=== PATIENT | female | born 1990 | race Hispanic/Latino ===

== ENCOUNTER 2016-11-11 08:00 | Inpatient (IN) | payer OTHER ==
[2016-11-11 09:25] VITALS: BMI 23.8
[2016-11-11] MEDS ORDERED: Oxytocin 30 units/LR 500ML 30 UNITS/500 ML BAG IV SCH (10:15)
--- NOTE | 2016-11-11 10:24 | OBADHP ---
Datetime: 11/11/2016 10:19 Pelvic Type - PN: Adequate Extremities - PN: Normal Abdomen - PN: Normal Back - PN: Normal Breast - PN: Normal Lungs - PN: Normal Heart - PN: Normal Thyroid - PN: Normal Neurologic - PN: Normal HEENT - PN: Normal General - PN: Normal Weight - Estimated: 3700 Presentation-Admit: Vertex FHR - Baseline A Provider: 125 Membranes, Provider: Intact Contraction Comments Provider: irregular Vital Signs Provider: Reviewed; Within Normal Limits IP Chief Complaint: Uterine contractions NICHD Variability Prov Fetus A: Moderate 6-25bpm NICHD Accel Fetus A IP Provider: 10X10 NICHD Decel Fetus A IP Provider: None Dilatation, Provider: 2 Effacement, Provider: 70 Station, Provider: -2 Genitourinary Exam: Normal DTRs - PN: Normal IP Adm Impression: Term, intrauterine IP Admit Plan: Admit to unit; Initiate labor protocol; Initiate labor augmentation protocol
[2016-11-11 11:04] LABS: BASO # 0.1 K/uL (0.0-0.2); BASO % 0.9 % (0.0-2.0); EOS # 0.2 K/uL (0.0-0.7); EOS % 1.5 % (0.0-4.0); HEMATOCRIT 40.7 % (34.0-47.0); LYMPH # 1.6 K/uL (1.0-4.3); LYMPH % 12.5 % (20.0-40.0); MEAN CELL VOLUME 92.1 fl (81.0-99.0); MEAN CORPUSCULAR HEMOGLOBIN 31.3 pg (27.0-31.0); MEAN CORPUSCULAR HGB CONC 34.1 g/dL (33.0-37.0); MEAN PLATELET VOLUME 9.1 fl (7.2-11.7); MONO # 0.9 K/uL (0.0-0.8); NEUT # 10.2 K/uL (1.8-7.0); NEUT % 78.1 % (50.0-75.0); RED CELL DISTRIBUTION WIDTH 14.2 % (11.5-14.5); WHITE BLOOD COUNT 13.1 K/uL (4.8-10.8)
[2016-11-11 11:15] LABS: ALB/GLOB RATIO 1.6 (1.0-2.1); ALKALINE PHOSPHATASE 184 U/L (38-126); ALT/SGPT 39 U/L (9-52); AST/SGOT 42 U/L (14-36); BILIRUBIN,TOTAL 0.4 mg/dl (0.2-1.3); BLOOD UREA NITROGEN 8 mg/dl (7-17); CALCIUM 9.7 mg/dL (8.4-10.2); CARBON DIOXIDE 22 mmol/L (22-30); CHLORIDE 107 mmol/L (98-107); GFR AFRICAN-AMERICAN > 60; GLUCOSE,RANDOM 75 mg/dL (65-105); SODIUM 139 mmol/l (132-148); TOTAL PROTEIN 6.4 G/DL (6.3-8.2)
[2016-11-11 11:45] VITALS: BP 122/82; PULSE 106; RESP 18; TEMP 99; O2SAT 100
--- NOTE | 2016-11-11 12:06 | OBPN ---
Datetime: 11/11/2016 10:30 IP Progress Impression: Rupture of membranes IP Procedures: Artificial ROM IP Progress Plan: Continue present management Vital Signs Provider: Reviewed Dilatation, Provider: 2 Effacement, Provider: 80 Datetime: 11/11/2016 10:19 IP Informed Consent Obtain: Vaginal Delivery; Section Delivery; Induction of Labor; Risks, Benefits and Alternatives Discussed Membranes, Provider: Intact Contraction Comments Provider: irregular FHR - Baseline A Provider: 125 Weight - Estimated: 3700 Presentation-Admit: Vertex NICHD Accel Fetus A IP Provider: 10X10 NICHD Variability Prov Fetus A: Moderate 6-25bpm Station, Provider: -2 NICHD Decel Fetus A IP Provider: None
--- NOTE | 2016-11-11 18:26 | OBPN ---
Datetime: 11/11/2016 18:24 IP Progress Impression: Normal progression of labor IP Procedures: Artificial ROM IP Progress Plan: Continue present management FHR Category Provider Fetus A: Category I NICHD Decel Fetus A IP Provider: None Datetime: 11/11/2016 10:30 Membranes, Provider: Ruptured Amniotic Fluid Color, Provider: Clear Contraction Comments Provider: irregular Station, Provider: -2
[2016-11-11] MEDS ORDERED: Lidocaine 1% Inj (20ml) ONE (19:38)
[2016-11-11] MEDS ORDERED: Benzocaine/Menthol SPRAY TOP PRN (20:53)
--- NOTE | 2016-11-11 21:34 | OBDS ---
[employer] PERSONNEL Nurse Avionics Technician Certified: Seema Price CNM Delivery Doctor: Seema Price CNM Lamp Shade Assembler: Portia RN , Donny RN MATERNAL INFORMATION Delivery Anesthesia: Local Medications in Delivery: N/A Estimated Blood Loss (ml): 300 Placenta Cultured: No Maternal Complications: None Provider Comments: Patient was examined and found to be 10cm/+2 with the urge to push. FHR Cateogry 1. Pt pushed effectively for a of a live viable infant born from the direct OA position. Should er were easy and the baby was placed on the maternal abdomen and a spontaneous cry was produced. The cord clamping was then delayed until the placenta showed signes of seperating (5 min after ) and the placenta was spontaneous and intact. The fluid was clear. The baby produced yellow urine while o n the mother's abdomen. LABOR SUMMARY No. Babies in Womb: 1 Attempted: No Labor Anesthesia: None LABOR INFORMATION Reason for Induction: Postterm Other Ripening Agents: N/A Oxytocin: N/A Group B Beta Strep: Negative (Annotations: 10/11/16) Antibiotics # of Doses: N/A Steroids Given: None Reason Steroids Not Administered: Not Applicable MEMBRANES Membranes Rupture Method: Artificial Rupture of Membranes: 11/11/2016 10:45 Length of Rupture (hrs): 8.70 Amniotic Fluid Color: Clear Amniotic Fluid Amount: Moderate Amniotic Fluid Odor: Normal STAGES OF LABOR Stage 3 hrs: 0 Stage 3 min: 8 VAGINAL DELIVERY Episiotomy: None Laceration Extension: Second Degree Laceration Type: Perineal Laceration Repair: Yes Laceration Repair Note: Perineal insepction revealed a very mild 2nd degree laceration which was rep aired with a 2.0 vicryl suture. good hemostasis. no utertonics given. fundus firm Initial Vag Sponge Count: 15 Final Vag Sponge Count: 15 Initial Vag Sharps Count: 1 Final Vag Sharps Count: 1 Sponge Count Correct: Yes Sharps Count Correct: Yes Count Comment: Laps 5 Xray detectable sponge 10 sharps 1 instruments 15 BABY A INFORMATION Delivery Date/Time: 11/11/2016 19:27 Method of Delivery: Vaginal Born in Route : No : N/A Forceps: N/A Vacuum Extraction: N/A Shoulder Dystocia : No SHOULDER DYSTOCIA BABY A Infant Delivery Date/Time: 11/11/2016 19:27 PRESENTATION/POSITION BABY A Presentation: Cephalic Cephalic Presentation: Vertex Vertex Position: N/A PLACENTA INFORMATION BABY A Placenta Delivery Time : 11/11/2016 19:35 SCORES BABY A Heart Rate 1 min: >100 bpm Resp Effort 1 min: Good Cry Reflex Irritability 1 min: Cough or Sneeze or Pulls Away Muscle Tone 1 min: Active Motion Color 1 min: Body [place], Extremities Blue Resuscitation Effort 1 min: Tactile Stimulation SCORE 1 MIN: 9 Heart Rate 5 min: >100 bpm Resp Effort 5 min: Good Cry Reflex Irritability 5 min: Cough or Sneeze or Pulls Away Muscle Tone 5 min: Active Motion Color 5 min: Body [place], Extremities Blue Resuscitation Effort 5 min: N/A SCORE 5 MIN: 9 INFORMATION BABY A Infant Outcome : Liveborn Infant Condition : Stable Sex: Male CORD INFORMATION BABY A No. Cord Vessels: 3 Nuchal Cord : N/A Nuchal Cord Other: N/A True Knot: N/A Infant Cord pH Baby Arterial: N/A Infant Cord pH Baby Venous: N/A Cord Blood Taken: Yes Banking/Donate Info: N/A Suction: None ASSESSMENT BABY A Complications: None Physical Findings at Delivery: Within Normal Limits Respirations: Appears Normal Director Drug Safety/ALS Called : No Infant Care By: Portia MORALEZ Transferred To: Remains with Mother
[2016-11-12 06:21] LABS: BASO % 0.2 % (0.0-2.0); EOS # 0.2 K/uL (0.0-0.7); EOS % 0.8 % (0.0-4.0); LYMPH # 2.2 K/uL (1.0-4.3); LYMPH % 11.3 % (20.0-40.0); MEAN CELL VOLUME 90.3 fl (81.0-99.0); MEAN CORPUSCULAR HEMOGLOBIN 31.2 pg (27.0-31.0); MEAN CORPUSCULAR HGB CONC 34.5 g/dL (33.0-37.0); MEAN PLATELET VOLUME 8.3 fl (7.2-11.7); MONO # 1.8 K/uL (0.0-0.8); NEUT # 15.5 K/uL (1.8-7.0); NEUT % 78.7 % (50.0-75.0); RED CELL DISTRIBUTION WIDTH 14.1 % (11.5-14.5); WHITE BLOOD COUNT 19.8 K/uL (4.8-10.8)
--- NOTE | 2016-11-13 06:00 | OBPPN ---
Datetime: 11/12/2016 12:56 PP Pain Prov: Within normal limits PP Nausea Prov: Denies PP Flatus Prov: Yes PP Breasts Prov: Normal PP Heart Prov: Normal PP Lungs Prov: Normal PP Abdomen/Uterus Prov: Normal PP Lochia Prov: Normal PP Vulva/Perineum Prov: Normal PP CVA Tenderness Prov: Normal PP Extremities Prov: Normal PP Progress Prov: Normal PP Impression Prov: Normal progression PP Plan Prov: Continue present management PP Progress Note Prov: S/P and 2nd degree laceration repair. Patient dong well. No comps. Plan to discharge home in AM. FOllow up in office in 6 wks. IP PP Procedures: None
[2016-11-13] MEDS ORDERED: Prenatal Multivit/Folic Acid/Iron Tab PO SCH (09:00)
[2016-11-13] MEDS ORDERED: Patient's Own Med (Pnv With Ca,No.72/Iron/Fa [Pnv Prenatal Plus Multivit Tab] 1 TAB) PO SCH (09:00)
== END 2016-11-13 19:27 | disposition home or self-care (01) | DRG 775 ==
LOC: H.EROB2 08:00 → H.L&D 09:43 → H.OB/GYN 22:00
PROVIDERS: ADMIT Advanced Practice Midwife; ATTEND Advanced Practice Midwife
PROC: 10E0XZZ Delivery of Products of Conception, External Approach (ICD-10-PCS; principal; 2016-11-11)
PROC: 0KQM0ZZ Repair Perineum Muscle, Open Approach (ICD-10-PCS; 2016-11-11)
PROC: 4A1HXCZ Monitoring of Products of Conception, Cardiac Rate, External Approach (ICD-10-PCS; 2016-11-11)
DX: O48.0 Post-term pregnancy (principal); O70.1 Second degree perineal laceration during delivery; Z37.0 Single live birth; Z3A.41 41 weeks gestation of pregnancy